=== PATIENT | male | born 1950 | race Caucasian/White ===

== ENCOUNTER 2017-03-06 11:25 | Inpatient (IN) | payer MEDICARE, OTHER ==
[~2017-03-06] VITALS: Ht 177.8 cm; Wt 92.0 kg
[2017-03-06] MEDS ORDERED: INDO50CA PO (11:49)
[2017-03-06] MEDS ORDERED: ESCI20TA PO (11:49)
[2017-03-06] MEDS ORDERED: FAMO20TA2 PO (11:49)
[2017-03-06] MEDS ORDERED: ALLO100T PO (11:49)
[2017-03-06] MEDS ORDERED: ZOLP10TA3 PO (11:49)
--- NOTE | 2017-03-07 16:13 | MH ---
cc: August JEAN M.D. Corrected Copy: 03/13/17 DATE OF SURGERY: 03/14/2017 ADMISSION DIAGNOSIS Osteoarthritic degeneration with rotator cuff tear left shoulder now being admitted for reverse left shoulder arthroplasty. ADMISSION HISTORY AND PHYSICAL This pleasant 66-year-old male is being admitted today for a left reverse total shoulder arthroplasty due to severe osteoarthritic degeneration left shoulder with rotator cuff tear. PAST MEDICAL HISTORY Patient has a history of anxiety, arthritis, depression head trauma, back pain, sleep apnea and gout. MEDICATIONS Current medication includes 1. Famotidine. 2. Allopurinol. 3. Zolpidem. 4. Lexapro PAST SURGICAL HISTORY Previous surgeries include multiple surgeries on both shoulders. He has had a right total knee in the past and surgeries on both feet and both hands. SOCIAL HISTORY: He does not smoke or drink. REVIEW OF SYSTEMS Noncontributory. FAMILY HISTORY Noncontributory. ALLERGIES He has a sensitivity to CODEINE. PHYSICAL EXAMINATION IN GENERAL: We find a 66-year male, well-developed, well-nourished x3, complaining of pain and debility within his left nondominant shoulder. VITAL SIGNS: Blood pressure 128/80, pulse 68 and regular, respirations 18, temperature 98.4, pulse oximetry 96% on room air. HEAD, EYES, EARS, NOSE, AND THROAT: Eyes - Pupils equal, round, reactive to light and accommodation, extraocular muscles intact. Ears, nose, mouth clear. NECK: Supple. LUNGS: Clear. HEART: Regular rate. ABDOMEN: Soft, positive bowel sounds, nontender. EXTREMITIES: Reveals the left shoulder to be tender with some limitation of motion especially with external rotation is absent. He is neurovascularly intact to his fingers. IMPRESSION At this time is severe painful osteoarthritic degeneration left shoulder with rotator cuff tear, chronic. PLAN Admission for reverse total shoulder arthroplasty, left shoulder today. He understands to use Hibiclens scrub and Bactroban preoperatively and is given a prescription for postop pain control in the office. MD AMELIE Pereira/hesham /3:53 PM /4:05 PM APOLINAR
[2017-03-14] MEDS ORDERED: INSULIN HUMAN REGULAR 1,000 UNITS/10 ML VIAL SQ PRN (06:15)
[2017-03-14] MEDS ORDERED: SODIUM CHLORID 0.9% 500 ML IV PRN (06:15)
[2017-03-14] MEDS ORDERED: METOPROLOL TARTRATE 25 MG TAB PO PRN (06:15)
[2017-03-14] MEDS ORDERED: CHLORHEXIDINE GLUCONATE 4% SOLN 120 ML BTL TOPICAL SCH (06:15)
[2017-03-14] MEDS ORDERED: VANCOMYCIN 1000 MG/NS 250 ML (for <70 kg) IV SCH ×2 (06:15)
[2017-03-14] MEDS ORDERED: CHLORHEXIDINE GLUCONATE 2 % 1 PACK (2 CLOTHS) TOPICAL PRN (06:15)
[2017-03-14] MEDS ORDERED: LACTATED RINGER'S 1000 ML IV PRN (06:15)
[2017-03-14] MEDS ORDERED: POVIDONE IODINE 5% (ANTISEPSIS KIT) 4 APPLICATIONS EACH NARE PRN (06:15)
[2017-03-14] MEDS ORDERED: ceFAZolin 2 GM PREMIX 50 ML IV SCH (06:15)
[2017-03-14 06:17] VITALS: BP 131/83; PULSE 61; RESP 16; TEMP 98.5; O2SAT 96
[2017-03-14] MEDS ORDERED: ceFAZolin INJ 1,000 MG VIAL ONE (06:28)
[2017-03-14] MEDS ORDERED: STERILE WATER FOR INJ 20 ML VIAL ONE (06:28)
[2017-03-14] MEDS ORDERED: THROMBIN (TOPICAL) 20,000 UNIT SPRAY KIT ONE (06:29)
[2017-03-14] MEDS ORDERED: GELFOAM SIZE 100 ONE (06:31)
[2017-03-14] MEDS ORDERED: MIDAZOLAM HCL 2 MG/2 ML VIAL ONE (07:55)
[2017-03-14] MEDS ORDERED: TRANEXAMIC ACID INJ 930 MG in SODIUM CHLORIDE 0.9% INJ 100 ML IV SCH ×2 (08:00→11:00)
[2017-03-14] MEDS ORDERED: ONDANSETRON HCL 4 MG/2 ML VIAL IVP PRN (08:45)
[2017-03-14] MEDS ORDERED: NALOXONE HCL 0.4 MG/ML AMP IV PRN (08:45)
[2017-03-14] MEDS ORDERED: TEMAZEPAM 15 MG CAP PO PRN (08:45)
[2017-03-14] MEDS ORDERED: oxyCODONE/ACETAMINOPHEN 5 MG/325 MG TAB PO PRN ×2 (08:45)
[2017-03-14] MEDS ORDERED: MISCELLANEOUS NURSING INFORMATION XX PRN (08:45)
[2017-03-14] MEDS ORDERED: MORPHINE SULFATE 8 MG/ML INJ IV PUSH PRN (08:45)
[2017-03-14] MEDS ORDERED: BISACODYL 10 MG SUPP RECTAL PRN (08:45)
[2017-03-14] MEDS ORDERED: TRANEXAMIC ACID INJ 0 MG in SODIUM CHLORIDE 0.9% INJ 100 ML IV SCH (08:45)
[2017-03-14] MEDS ORDERED: MORPHINE SULFATE 30 MG/30 ML PCA IV SCH (08:45)
[2017-03-14] MEDS ORDERED: MAGNESIUM HYDROXIDE SUSP 30 ML CUP PO PRN (08:45)
[2017-03-14] MEDS ORDERED: ACETAMINOPHEN 325 MG TAB PO PRN (08:45)
[2017-03-14] MEDS ORDERED: SODIUM CHLORIDE 0.9% FLUSH 5 ML FLUSH IVF PRN (08:45)
[2017-03-14] MEDS ORDERED: ZOLPIDEM TARTRATE 10 MG TAB PO PRN (08:45)
--- NOTE | 2017-03-14 08:48 | HHI.FF ---
Face to Face Verification Diagnosis: (1) Status post reverse arthroplasty of left shoulder Occupational Therapy Left UE Weight Bearing: Non WB Left UE Range of Motion: Pendular Nursing RN: 3 days/week x 2 weeks Dressing Changes: Do not change dressing, Other I have seen patient Moisés Stephen on 03/14/17. My clinical findings support the need for the requested home health care services because: Limited ability to care for self High risk of falls I certify that my clinical findings support that this patient is homebound because: Unsteady gait/balance August Werner MD Mar 14, 2017 08:48
[2017-03-14] MEDS: FAMOTIDINE 20 MG TAB PO SCH ×2 (09:00→20:21)
[2017-03-14] MEDS: SODIUM CHLORIDE 0.9% FLUSH 5 ML FLUSH IVF SCH ×2 (09:00→20:21)
[2017-03-14] MEDS ORDERED: NEOSTIGMINE 3 MG/3 ML SYR IV ONE (10:51)
[2017-03-14] MEDS ORDERED: PROPOFOL 200 MG/20 ML AMP IV ONE (10:51)
[2017-03-14] MEDS ORDERED: ePHEDrine/NS 25 MG/5 ML SYR IV ONE (10:51)
[2017-03-14] MEDS ORDERED: LACTATED RINGER'S 1000 ML INJ 1,000 ML IV ONE (10:52)
[2017-03-14] MEDS ORDERED: PHENYLEPH/NS 1000 MCG/10 ML SYR IV ONE (10:52)
[2017-03-14] MEDS ORDERED: ONDANSETRON HCL 4 MG/2 ML VIAL IV PUSH ONE (10:52)
[2017-03-14] MEDS ORDERED: Post-op Orders (for Pharmacy) MISC XX ONE (12:30)
[2017-03-14] MEDS ORDERED: fentaNYL CITRATE 250 MCG/5 ML AMP ONE (12:45)
[2017-03-14] MEDS ORDERED: *ONDANSETRON 4 MG VIAL PERIprocedural Use ONLY ONE ×2 (12:45→13:56)
[2017-03-14] MEDS ORDERED: *RESP: ALBUTEROL 2.5 MG/3 ML NEB (PRN) PERIprocedural Use ONLY NEB ONE (12:51)
[2017-03-14] MEDS ORDERED: *LABETALOL HCL 100 MG/20 ML VIAL PERIprocedural Use ONLY ONE (12:51)
[2017-03-14 12:52] LABS: HEMATOCRIT 40.8 % (39.0-51.0); REVIEW FLAG FINAL
--- NOTE | 2017-03-14 13:49 | RADRPT ---
EXAM DATE/TIME: 03/14/2017 13:03 [facility] COMPARISON: No previous studies available for comparison. INDICATIONS : Post op of a total left shoulder. MEDICAL HISTORY : None. SURGICAL HISTORY : None. ENCOUNTER: Initial ACUITY: 1 day PAIN SCORE: 6/10 LOCATION: Left Shoulder. FINDINGS: Two view examination of the left shoulder demonstrates total shoulder arthroplasty. Both the humeral and glenoid portions of the arthroplasty are intact. No acute fracture. CONCLUSION: Appropriate postoperative appearance of the left shoulder status post total arthroplasty. Adrian Obrien MD on March 14, 2017 at 13:44 Board Certified Radiologist. This report was verified electronically.
[2017-03-14] MEDS ORDERED: PROCHLORPERAZINE INJ 10 MG/2 ML VIAL ONE (13:59)
[2017-03-14] MEDS ORDERED: PROCHLORPERAZINE INJ 10 MG/2 ML VIAL IV ONE (14:15)
[2017-03-14] MEDS: LACTATED RINGER'S 1000 ML INJ 1,000 ML IV SCH (18:00)
[2017-03-14] MEDS: ESCITALOPRAM OXALATE 20 MG TAB PO SCH (18:49)
[2017-03-14] MEDS: ALLOPURINOL 100 MG TAB PO SCH (18:49)
[2017-03-14 19:10] VITALS: BP 116/68; PULSE 72; RESP 17; TEMP 96; O2SAT 97
[2017-03-14] MEDS: PCA - TOTAL MG MORPHINE DELIVERED PER SHIFT SCH (20:22)
[2017-03-14 23:35] VITALS: BP 115/72; PULSE 90; RESP 17; TEMP 96; O2SAT 94
[2017-03-15] MEDS: PCA - TOTAL MG MORPHINE DELIVERED PER SHIFT SCH (03:31)
[2017-03-15 04:05] VITALS: BP 114/70; PULSE 82; RESP 17; TEMP 97.9; O2SAT 92
[2017-03-15 07:07] LABS: HEMATOCRIT 37.5 % (39.0-51.0); REVIEW FLAG FINAL
[2017-03-15 08:00] VITALS: BP 138/85; PULSE 80; RESP 16; TEMP 97.2; O2SAT 94
--- NOTE | 2017-03-15 08:05 | PD.ORT.PN ---
Subjective Subjective Remarks pt comfortable today with no complaints. Wants to go home today. Objective Vitals Vital Signs Date Time Temp Pulse Resp B/P Pulse Ox O2 Delivery O2 Flow Rate FiO2 03/15/17 04:05 97.9 82 17 114/70 92 03/15/17 03:31 18 03/14/17 23:35 96.0 90 17 115/72 94 03/14/17 20:50 Nasal Cannula 2.00 03/14/17 19:22 Nasal Cannula 2.00 03/14/17 19:10 96.0 72 17 116/68 97 03/14/17 18:00 65 16 117/68 96 Nasal Cannula 2 03/14/17 17:58 16 03/14/17 17:00 65 18 111/71 95 Nasal Cannula 2 03/14/17 16:30 66 15 126/73 94 Nasal Cannula 2 03/14/17 16:00 97.4 66 16 108/74 96 Nasal Cannula 2 03/14/17 15:30 65 16 119/68 96 Nasal Cannula 2 03/14/17 15:00 66 18 104/63 95 Nasal Cannula 2 03/14/17 14:30 64 17 103/67 94 Nasal Cannula 2 03/14/17 14:00 97.4 64 18 125/74 95 Nasal Cannula 2 03/14/17 13:30 63 17 121/69 95 Nasal Cannula 2 03/14/17 13:15 63 17 128/75 95 Nasal Cannula 2 03/14/17 13:00 62 17 123/69 98 Nasal Cannula 4 03/14/17 12:45 88 17 159/82 94 Nasal Cannula 4 03/14/17 12:38 97.4 80 18 165/88 98 Simple Mask 6 I/O 03/14/17 03/14/17 03/14/17 03/15/17 03/15/17 03/15/17 07:00 15:00 23:00 07:00 15:00 23:00 Intake Total 1550 ml 784 ml 240 ml Output Total 450 ml 0 ml Balance 1100 ml 784 ml 240 ml Intake Oral 320 ml 240 ml IV Total 464 ml Other 1550 ml Output Urine Total 0 ml Estimated Blood Loss 450 ml # Voids 1 1 # Bowel Movements 0 0 Result Diagram: 03/15/17 0638 Objective Remarks wound clean and dry. Dressing intact. NV intact to fingers. Assessment & Plan Ortho Post Op Day #: 1 Problem List: Assessment and Plan Home later today if comfortable and afebrile. DC [employer]ER. August Werner MD Mar 15, 2017 08:05
[2017-03-15] MEDS: LACTATED RINGER'S 1000 ML INJ 1,000 ML IV SCH ×2 (09:39→10:32)
[2017-03-15] MEDS: ESCITALOPRAM OXALATE 20 MG TAB PO SCH (10:27)
[2017-03-15] MEDS: ALLOPURINOL 100 MG TAB PO SCH (10:27)
[2017-03-15] MEDS: FAMOTIDINE 20 MG TAB PO SCH (10:27)
[2017-03-15] MEDS: SODIUM CHLORIDE 0.9% FLUSH 5 ML FLUSH IVF SCH (10:31)
--- NOTE | 2017-03-15 11:01 | MP ---
cc: August WERNER Corrected: 03/17/17 DATE OF SURGERY 03/14/2017 PREOPERATIVE DIAGNOSIS Arthritic degeneration with absence of the rotator cuff left shoulder. POSTOPERATIVE DIAGNOSIS Arthritic degeneration with absence of the rotator cuff left shoulder. SURGERY PERFORMED Reverse left total shoulder arthroplasty using the JL components size 12 stem, 36 insert and a standard [address] Werner OCCUPATIONAL PHYSICIAN JARED Paulino ANESTHESIA General intubation and block PROCEDURE The patient was brought to the operating room where after successful induction of anesthesia, the patient was placed on the operating room table in beach chair position. The left shoulder and arm were prepped and draped in the usual manner. Anterior incision deltopectoral groove made from just distal and inferior to the acromion just staying lateral to the coracoid process along the groove 6 inches in length, carried down through the subcutaneous tissue, through deltoid splitting incision staying lateral to the cephalic vein to expose the capsule which was removed. The entire rotator cuff was found to be off the head of the humerus and the humerus deformed. The remains of the incision carried through the bicipital groove. Remains of the biceps ligated and sutured into the tissue just beneath the bicipital groove using number #0 Vicryl suture. The subscapularis was identified and tagged using #2 FiberWire for later repair. The head of the humerus was then easily dislocated anterior and using the cutting jigs, the top portion of the head of the humerus removed at a 135 degrees retroversion angle and the humerus was kept out of the way with retractor to expose the glenoid protecting the axillary nerve with the retractor posterior and one superior. The deltoid was debrided of the remains of the tissue and a pin inserted into the center just slightly inferior to center followed by insertion of the tap and with the reaming guide, the glenoid was then reamed and then the glenoid baseplate was inserted with a center locking screw and four drill holes made anterior, posterior, and medial and lateral for insertion of the appropriate length screws to firmly affix the glenoid baseplate. The trial glenoid head was then inserted and the humerus was then broached to a size 12 and reamed for insertion of the cuff. Trials were then inserted. Trials found to track smooth with full range of motion using a standard 36 head and the aforementioned baseplate trials were then removed. The wound irrigated copiously with antibiotic solution and the actual Glenosphere impacted in placed followed by insertion of the size 12 stem and the 36 cup. After trial showed that there was no subluxation or dislocation and had a good range of motion, the actual cup liner was impacted into place. The shoulder was then reduced. Excellent range of motion was found with no instability. The wound was again irrigated copiously with antibiotic solution. Meticulous hemostasis achieved. The subscapularis was then reapproximated through drill holes into the proximal humerus. The deltoid was then approximated using running 0 Vicryl sutures. Subcutaneous tissue approximated using interrupted running 2-0 Monocryl suture and use of a Primapore type dressing, followed by a sling and swath. The estimated blood loss throughout the case was 450 cc. Sponge and suture counts were correct. The patient tolerated the procedure well and left the operating room in satisfactory condition. No drain utilized. J. MD AMELIE Baca/SHAAN /12:18 PM /10:42 AM MTDKang
[2017-03-15 12:00] VITALS: BP 118/79; PULSE 78; RESP 16; TEMP 99.4; O2SAT 94
[2017-03-15 16:01] VITALS: BP 128/74; PULSE 82; RESP 16; TEMP 97.7; O2SAT 95
[2017-03-15] MEDS ORDERED: DOCUSATE SODIUM 100 MG CAP PO SCH (21:00)
[2017-03-16] MEDS ORDERED: BACITRACIN OINT 0.9 GM PKT TOP PRN (11:15)
== END 2017-03-15 17:26 | disposition home health service (06) | DRG 483 ==
LOC: HSDI 03-14 05:37 → N06B 03-14 19:11
PROVIDERS: ADMIT Surgery; ATTEND Surgery
PROC: 0RRK00Z Replacement of Left Shoulder Joint with Reverse Ball and Socket Synthetic Substitute, Open Approach (ICD-10-PCS; principal; 2017-03-14 07:56)
DX: M19.012 Primary osteoarthritis, left shoulder (principal); F32.9 Major depressive disorder, single episode, unspecified; M75.102 Unspecified rotator cuff tear or rupture of left shoulder, not specified as traumatic; M10.9 Gout, unspecified; G47.30 Sleep apnea, unspecified; F41.9 Anxiety disorder, unspecified
CPT/HCPCS: 73030; 85014; 85018; 94150; 94664; C1776; J0690; J0780; J2250; J2270; J2370; J2405; J2710; J3010; J3370; J7050; J7120; J7613

== ENCOUNTER → 2017-03-06 | Outpatient (CLI) | payer MEDICARE, OTHER ==
[~2017-03-06] MED LIST: ALLO100T PO; ESCI20TA PO; FAMO20TA2 PO; INDO50CA PO; ZOLP10TA3 PO
[2017-03-06 12:17] LABS: AUTOMATED NEUTROPHIL # 3.8 TH/MM3 (1.8-7.7); BASOPHIL % 0.8 % (0.0-2.0); EOSINOPHIL # 0.2 TH/MM3 (0-0.4); EOSINOPHIL % 2.5 % (0.0-4.0); HEMATOCRIT 45.2 % (39.0-51.0); HEMO FLAGS DIFF FINAL; LYMPH % 29.1 % (9.0-44.0); LYMPHOCYTE # 1.8 TH/MM3 (1.0-4.8); MEAN CELL VOLUME 87.1 FL (80.0-100.0); MEAN CORPUSCULAR HEMOGLOBIN 29.5 PG (27.0-34.0); MEAN CORPUSCULAR HGB CONC 33.9 % (32.0-36.0); MONO % 6.5 % (0.0-8.0); NEUT % 61.1 % (16.0-70.0); PLATELET COUNT 208 TH/MM3 (150-450); RED BLOOD COUNT 5.19 MIL/MM3 (4.50-5.90); RED CELL DISTRIBUTION WIDTH 14.8 % (11.6-17.2); WHITE BLOOD COUNT 6.3 TH/MM3 (4.0-11.0)
[2017-03-06 12:18] LABS: APTT (PATIENT) 29.4 SEC (24.3-30.1); PROTHROMBIN TIME - PATIENT 10.9 SEC (9.8-11.6)
[2017-03-06 12:42] LABS: ANION GAP 7 MEQ/L (5-15); AST (GOT) 11 U/L (15-37); BICARBONATE 29.2 MEQ/L (21.0-32.0); BLOOD UREA NITROGEN 15 MG/DL (7-18); CHLORIDE 105 MEQ/L (98-107); GLOMERULAR FILTRATION RATE 58 ML/MIN (>89); GLUCOSE,FASTING 122 MG/DL (74-99); POTASSIUM 4.3 MEQ/L (3.5-5.1); SODIUM (NA) 141 MEQ/L (136-145)
[2017-03-06 12:48] LABS: ALKALINE PHOSPHATASE 172 U/L (45-117); ALT (GPT) 20 U/L (12-78); TOTAL BILIRUBIN ADULT 0.4 MG/DL (0.2-1.0)
[2017-03-06 13:11] LABS: BLOOD, URINE NEG (NEG); COMMENT (UR) CULT NOT INDICATED; CULTURE IF INDICATED CULT NOT INDICATED; GLUCOSE,URINE NEG (NEG); HYALINE CAST, URINE 1 /lpf (RARE); KETONE, URINE NEG (NEG); MUCUS URINE FEW /lpf (OCC); NITRITE,URINE NEG (NEG); PH, URINE 5.5 (5.0-8.5); URINE COLOR YELLOW (YELLW/STRAW)
--- NOTE | 2017-03-06 15:57 | EKG ---
Date Performed: 03/06/2017 Time Performed: 11:43:39 PTAGE: 66 years EKG: SINUS BRADYCARDIA BORDERLINE ECG NO PREVIOUS TRACING DOCTOR: Phong Juárez Interpretating Date/Time 03/06/2017 15:57:07
== END ==
LOC: CPRE 11:13
PROVIDERS: ATTEND Surgery
DX: Z01.810 Encounter for preprocedural cardiovascular examination (principal); Z01.812 Encounter for preprocedural laboratory examination; Z79.01 Long term (current) use of anticoagulants; R00.1 Bradycardia, unspecified
CPT/HCPCS: 36415; 80053; 81001; 85025; 85610; 85730; 93005